=== PATIENT | female | born 1990 | race Caucasian/White ===

== ENCOUNTER → 2020-08-11 | Outpatient (CLI) | payer OTHER ==
--- NOTE | 2020-08-11 15:11 | RAD ---
XR KNEE 3 VIEWS_RT DATE: 08/11/2020 12:37 PM INDICATION: RIGHT KNEE PAIN COMPARISON: None. FINDINGS: Bones: There is no evidence of acute fracture or dislocation. Joints: The joint spaces are normal. There is no joint effusion. Miscellaneous: None. IMPRESSION: Normal exam Electronically signed by: Scott Mabry MD (08/11/2020 3:09 PM) [id number]
== END ==
LOC: RAD 12:23
PROVIDERS: ATTEND Nurse Practitioner Family
DX: M25.561 Pain in right knee (principal)
CPT/HCPCS: 73562